=== PATIENT | female | born 1965 | race Caucasian/White ===

== ENCOUNTER 2017-09-15 12:53 | Emergency (ER) | END 2017-09-15 16:03 | disposition home or self-care (01) ==

== ENCOUNTER 2018-12-22 14:41 | Emergency (ER) | payer SELFPAY ==
[~2018-12-22] VITALS: Ht 162.6 cm; Wt 90.0 kg
[~2018-12-22 14:41] MED LIST: IBUP-1542 PO
[2018-12-22 14:43] VITALS: BP 151/85; PULSE 85; RESP 18; Ht 162.6 cm; Wt 90.0 kg
--- NOTE | 2018-12-22 15:08 | ERD ---
ER Documentation Chief Complaint Chief Complaint BACK PAIN HPI 53-year-old female, with history of chronic back pain, presents to the emergency department, complaining of 5 days with worsening of lower back pain, no reports of acute injury, the pain is dull, constant, 6/10, worsened by flexion and lateral rotation. The patient denies fever, chills, no distal weakness, numbness or tingling. No rashes, no abdominal pain. The patient has been taking Tylenol with mild improvement of the symptoms. ROS All systems reviewed and are negative except as per history of present illness. Medications Home Meds Active Scripts Baclofen* (Baclofen*) 10 Mg Tablet, 10 MG PO QHS, #10 TAB Prov:MILENA VALERO MD 12/22/18 Ibuprofen* (Motrin*) 400 Mg Tab, 400 MG PO Q6H PRN for PAIN AND OR ELEVATED TEMP, #30 TAB Prov:MILENA VALERO MD 12/22/18 Acetaminophen* (Tylenol*) 325 Mg Tablet, 2 TAB PO Q6 PRN for PAIN AND OR ELEVATED TEMP, #20 TAB Prov:MILENA VALERO MD 12/22/18 Ibuprofen* (Motrin*) 600 Mg Tab, 600 MG PO Q6, #30 TAB Prov:BERNABE RODRIGUEZ PA-C 09/15/17 Allergies Allergies: Coded Allergies: No Known Allergy (Unverified , 09/15/17) PMhx/Soc History of Surgery: No Anesthesia Reaction: No Hx Neurological Disorder: No Hx Respiratory Disorders: No Hx Cardiac Disorders: No Hx Psychiatric Problems: No Hx Miscellaneous Medical Probl: No Hx Alcohol Use: No Hx Substance Use: No Hx Tobacco Use: No FmHx Family History: No diabetes, No coronary disease Physical Exam Vitals Vital Signs Date Temp Pulse Resp B/P (MAP) Pulse Ox O2 O2 Flow FiO2 Time Delivery Rate 12/22/18 98.2 85 18 151/85 99 14:43 (107) Physical Exam Patient is in no acute distress, vital signs stable. Alert and fully oriented. EYES: PERRLA, EOMI, Sclera and conjunctiva appear normal. EARS: Canals clear, tympanic membranes WNL THROAT: Normal oropharynx. NECK: Supple, No lymphadenopathy. Full ROM without pain or tenderness. HEART: RRR, no rubs, murmurs, clicks or gallops. LUNGS: Clear to auscultation. ABDOMEN: Soft, non-tender without masses or hepatosplenomegaly. EXTREMITIES: No edema bilaterally. BACK: Normal inspection, no bruises, no rashes, no deformity, decreased range of motion for lateral rotation and flexion. No vertebral tenderness, bilateral lo wer muscle spasm. NEURO: Cranial nerves grossly intact, no motor or sensory deficit Procedures/MDM At the time of discharge, patient nontoxic, ambulating, vital signs stable, no gross neurologic deficit. differential diagnosis include but not limited to: lumbar sprain/strain, sciatica, herniated disk, UTI less likely pyelo, kidney stone. Neurovascular exam grossly intact. no clinical findings suggestive of acute infectious process, no acute deformity, no edema, no rashes. Physical examination and clinical presentation consistent most likely with acute on chronic back pain with sciatica. Results and clinical impression discussed with the patient who agrees with management. The patient is stable to be treated outpatient and will be disch arged home with recommendations and close monitoring The patient was informed that the evaluation in the emergency department has been done to rule out an acute emergency, therefore, chronic conditions like malignancy or autoimmune diseases have not been evaluated; therefore, the patient was instructed to follow up with the primary care provider in the next 48h. If symptoms persist, worsen or new symptoms develop, then patient should return to the ED immediately. Instructions explained and given to patient with acknowledgment and demonstrated understanding. Disclaimer: Inadvertent spelling and grammatical errors are likely due to EHR/dictation software use and do not reflect on the overall quality of patient care. Also, please note that the electronic time recorded on this note does not necessarily reflect the actual time of the patient encounter. Departure Diagnosis: Primary Impression: Acute exacerbation of chronic low back pain Condition: Stable Additional Instructions: Thank you very much for allowing us to participate in your care. Your health and safety is our top priority at [facility]. The evaluation in the emergency department has been done to rule out an acute emergency. Chronic, [id number] conditions may have not been evaluated; therefore, you need to follow up with a primary care provider in the next 48h. If symptoms persist, worsen or new symptoms develop, then patient should return to the ED immediately. Call your primary care doctor TOMORROW for an appointment during the next 2-4 days and bring all the information provided. Have prescriptions filled and follow precisely the directions on the label. If the symptoms get worse and your provider is unavailable, return to the Emergency Department immediately. MILENA VALERO MD Dec 22, 2018 15:08
[2018-12-22] MEDS ORDERED: BACL10TA PO (15:10)
[2018-12-22] MEDS ORDERED: IBUP-1561 PO (15:10)
[2018-12-22] MEDS ORDERED: ACET325T33 PO (15:10)
== END 2018-12-22 15:37 | disposition home or self-care (01) ==
LOC: FTE 14:41
DX: M54.5 Low back pain (principal)
CPT/HCPCS: 99283